=== PATIENT | female | born 1990 | race Hispanic/Latino ===

== ENCOUNTER 2021-01-06 15:48 | Inpatient (IN) | payer SELFPAY ==
[~2021-01-06] VITALS: Ht 157.5 cm; Wt 59.0 kg
[2021-01-06 16:27] LABS: APPEARANCE,URINE Clear (CLEAR); BILIRUBIN,URINE Negative (NEGATIVE); COLOR,URINE Yellow (YELLOW); GLUCOSE, URINE (UA) Negative (NEGATIVE); KETONES,URINE 15 mg/dL (NEGATIVE); LEUKOCYTE ESTERASE ,URINE Trace (NEGATIVE); NITRATE,URINE Negative (NEGATIVE); OCCULT BLOOD,URINE Negative (NEGATIVE); PROTEIN,URINE Negative (NEGATIVE); UROBILINOGEN,URINE 0.2 mg/dL (0.2-1.0)
[2021-01-06 16:54] LABS: BACTERIA,URINE Few /HPF (None Seen); RBC,URINE 0-1 /HPF (0-1)
[2021-01-06 16:55] LABS: SQUAMOUS EPITHELIAL CELL,UR Few /HPF (0-2)
[2021-01-06] MEDS ORDERED: CALDOLOR 800MG+NS 250ML 250 ML IV PRN (19:00)
[2021-01-06] MEDS ORDERED: MEPERIDINE-PF 50 MG/ML SYG IVP PRN (19:00)
[2021-01-06] MEDS ORDERED: PROMETHAZINE HCL 25 MG/ML 1ML AMPULE IM PRN (19:00)
[2021-01-06 19:31] LABS: HEMATOCRIT 34.5 % (36-48); MEAN CORPUSCULAR HEMOGLOBIN 32.8 pg (27.0-33.0); MEAN CORPUSCULAR HGB CONC 34.5 g/dL (32.0-36.0); RED BLOOD CELL COUNT(AUTO) 3.63 MIL/uL (4.00-5.50); RED CELL DISTRIBUTION WIDTH 12.5 % (11.0-15.5); WHITE BLOOD COUNT (AUTO) 9.9 K/uL (4.8-10.8)
[2021-01-06] MEDS: LACTATED RINGERS 1000ML 1,000 ML IV SCH ×2 (20:15→21:40)
[2021-01-06 22:42] LABS: AMPHET/METH SCREEN,URINE NEGATIVE (NEGATIVE); BARBITURATE SCREEN, URINE NEGATIVE (NEGATIVE); BENZODIAZEPINES SCREEN,URINE NEGATIVE (NEGATIVE); CANNABINOID SCREEN,URINE NEGATIVE (NEGATIVE); COCAINE SCREEN,URINE NEGATIVE (NEGATIVE); OPIATE SCREEN,URINE NEGATIVE (NEGATIVE); PHENCYCLIDINE SCREEN,URINE NEGATIVE (NEGATIVE)
[2021-01-07] MEDS ORDERED: CEFAZOLIN SODIUM 1 GM VIAL IVP PRN (07:00)
[2021-01-07] MEDS ORDERED: CITRIC ACID/SODIUM CITRATE 30 ML UDCUP ONE (07:57)
[2021-01-07] MEDS ORDERED: MORPHINE PF 100MG/10ML AMP IV ONE (08:00)
[2021-01-07] MEDS ORDERED: FENTANYL CITRATE PF 50 MCG/1 ML 2ML VIAL ONE (08:00)
[2021-01-07] MEDS ORDERED: CEFAZOLIN SODIUM 1 GM VIAL IVP ONE (08:07)
[2021-01-07 08:37] LABS: RAPID PLASMA REAGIN NONREACTIVE (NONREACTIVE)
[2021-01-07] MEDS ORDERED: METOCLOPRAMIDE 10 MG/2 ML VIAL ONE (08:39)
[2021-01-07] MEDS ORDERED: PHENYLEPHRINE HCL 10 MG/ML 1ML VIAL IV ONE (08:39)
[2021-01-07] MEDS ORDERED: ONDANSETRON 4MG INJ ONE (09:50)
[2021-01-07] MEDS ORDERED: OXYTOCIN-LR 20 UNITS/1000 ML 1,000 ML IV PRN (10:30)
[2021-01-07] MEDS ORDERED: MEPERIDINE-PF 75 MG/ML SYG IM PRN (10:30)
[2021-01-07] MEDS ORDERED: 0.9%NACL 10ML VIAL IVP PRN (10:30)
[2021-01-07] MEDS ORDERED: PROMETHAZINE HCL 25 MG/ML 1ML AMPULE IM PRN (10:30)
[2021-01-07] MEDS ORDERED: ONDANSETRON 4MG INJ IVP PRN (11:00)
[2021-01-07] MEDS ORDERED: LORATADINE 10 MG TABLET PO PRN (11:00)
[2021-01-07] MEDS ORDERED: EPHEDRINE SULFATE 50 MG/ML AMPULE IVP PRN (11:00)
[2021-01-07] MEDS ORDERED: NALOXONE HCL 0.4 MG/1 ML ML IVP PRN ×3 (11:00)
[2021-01-07] MEDS ORDERED: DiphenhydrAMINE HCL 50 MG/ML VIAL IVP PRN (11:00)
[2021-01-07 12:39] VITALS: BP 105/60
[2021-01-07 16:13] VITALS: BP 126/82
[2021-01-07] MEDS: DEXTROSE 5 %-0.45 % NACL 1,000 ML IV PRN (16:23)
[2021-01-07] MEDS ORDERED: PNV1TABL17 PO (18:43)
[2021-01-07] MEDS: CALDOLOR 800MG+NS 250ML 250 ML IV SCH (19:00)
[2021-01-07 21:31] VITALS: BP 96/56
[2021-01-07 23:43] VITALS: BP 96/46
[2021-01-08] MEDS: DEXTROSE 5 %-0.45 % NACL 1,000 ML IV PRN (00:50)
[2021-01-08] MEDS: CALDOLOR 800MG+NS 250ML 250 ML IV SCH (02:56)
[2021-01-08 03:24] VITALS: BP 95/42
[2021-01-08] MEDS ORDERED: BISACODYL 10 MG SUPP.RECT RC PRN (06:00)
[2021-01-08] MEDS ORDERED: IBUPROFEN 600 MG TABLET PO PRN (06:00)
[2021-01-08] MEDS ORDERED: DIPH,PERTUSS(ACELL),TET VAC/PF 0.5 ML VIAL IM SCH (06:00)
[2021-01-08] MEDS ORDERED: SIMETHICONE 80 MG TAB.CHEW PO PRN (06:00)
[2021-01-08] MEDS ORDERED: ACETAMINOPHEN 500 MG TABLET PO PRN (06:00)
[2021-01-08] MEDS ORDERED: LANOLIN 30GM OINTMENT TP PRN (06:00)
[2021-01-08] MEDS ORDERED: MEASLES/MUMPS/RUBELLA VACCINE, LIVE 0.5 ML/VIAL SQ SCH (06:00)
[2021-01-08] MEDS ORDERED: HYDROCODONE/ACETAMINOPHEN 5/325 MG TAB PO PRN (06:00)
[2021-01-08 06:40] LABS: HEMATOCRIT 30.8 % (36-48); MEAN CORPUSCULAR HEMOGLOBIN 32.6 pg (27.0-33.0); MEAN CORPUSCULAR HGB CONC 33.8 g/dL (32.0-36.0); MEAN CORPUSCULAR VOLUME 96.6 fL (79-99); RED BLOOD CELL COUNT(AUTO) 3.19 MIL/uL (4.00-5.50); RED CELL DISTRIBUTION WIDTH 12.7 % (11.0-15.5); WHITE BLOOD COUNT (AUTO) 10.1 K/uL (4.8-10.8)
[2021-01-08] MEDS: ACETAMINOPHEN WITH CODEINE 1 TAB TAB PO PRN ×2 (06:42→12:42)
[2021-01-08 07:31] VITALS: BP 101/57
[2021-01-08] MEDS ORDERED: DOCUSATE SODIUM 100 MG CAP PO SCH (09:00)
[2021-01-08 11:15] VITALS: BP 113/66
[2021-01-08 13:13] LABS: HEPATITIS Bs ANTIGEN SCREEN P Negative (Negative)
[2021-01-08] MEDS ORDERED: ACET1TAB25 PO (15:20)
== END 2021-01-08 17:40 | disposition home or self-care (01) | DRG 788 ==
LOC: EDH 15:48 → LDH 15:49 → OBSVTOIN 15:49 → LDH 15:50 → WSH 01-07 12:54
PROVIDERS: ADMIT Obstetrics & Gynecology; ATTEND Obstetrics & Gynecology
PROC: 3E0234Z Introduction of Serum, Toxoid and Vaccine into Muscle, Percutaneous Approach (ICD-10-PCS; 2021-01-07)
PROC: 3E0134Z Introduction of Serum, Toxoid and Vaccine into Subcutaneous Tissue, Percutaneous Approach (ICD-10-PCS; 2021-01-07)
PROC: 10D00Z1 Extraction of Products of Conception, Low, Open Approach (ICD-10-PCS; principal; 2021-01-07 08:00)
DX: O34.211 Maternal care for low transverse scar from previous cesarean delivery (principal); Z3A.39 39 weeks gestation of pregnancy; Z37.0 Single live birth; Z23 Encounter for immunization
CPT/HCPCS: 36415; 59510; 80305; 81001; 85027; 86592; 86701; 86850; 86900; 86901; 87340; 87390; 90707; 90715; A4344; G0378; J0690; J1741; J2274; J2370; J2405; J2550; J2765; J3010; J7120